=== PATIENT | female | born 1965 | race Caucasian/White ===

== ENCOUNTER 2023-05-02 21:35 | Emergency (ER) | payer OTHER, SELFPAY ==
[~2023-05-02 21:35] MED LIST: Iopamidol 370 76% 100 ML VIAL ONE
[2023-05-02] MEDS ORDERED: Labetalol HCl 100 MG/20 ML VIAL ONE (21:47)
[2023-05-02 22:08] LABS: #Basophils 0.1 10x3/uL (0.0-0.2); #Eosinphils 0.2 10x3/uL (0.0-0.5); #Monocytes 0.8 10x3/uL (0.0-1.1); #Neutrophils 6.9 10x3/uL (1.5-8.4); %Basophils 0.6 % (0.0-2.0); %Eosinophils 1.7 % (0.0-6.0); %Lymphocytes 26.2 % (18.0-47.0); %Monocytes 7.4 % (0.0-10.0); %Neutrophils 63.7 % (40.0-75.0); Hematocrit 39.6 % (34.9-44.5); Hemoglobin 12.5 g/dL (12.0-15.5); Mean Corpuscular HGB CONC 31.6 g/dL (32.0-36.0); Mean Corpuscular Hemoglobin 26.2 pg (27.0-33.0); Platelet Count 369 10x3/uL (150-450); RBC Distribution Width 14.7 % (11.5-14.5); Red Blood Cell (RBC) Count 4.77 10x6/uL (3.90-5.03); White Blood Cell (WBC) Count 10.8 10x3/uL (3.5-10.5)
[2023-05-02] MEDS ORDERED: Acetaminophen 500 MG TAB ONE (22:20)
[2023-05-02 22:22] LABS: ALT (SGPT) 26 U/L (8-55); AST (SGOT) 23 U/L (5-34); Alkaline Phosphatase 110 U/L (40-110); Anion Gap 14 mmol/L (10-20); BUN (Urea Nitrogen) 14 mg/dL (9.8-20.1); Bilirubin, Total 0.2 mg/dL (0.2-1.2); Calc. Creatinine Clearance 0 mL/min (70-130); Calcium 8.8 mg/dL (7.8-10.44); Carbon Dioxide 25 mmol/L (22-29); Chloride 105 mmol/L (98-107); Estimated GFR 52; Glucose 204 mg/dL (70-105); Potassium 4.1 mmol/L (3.5-5.1); Sodium 140 mmol/L (136-145)
[2023-05-02 22:28] LABS: Troponin I 0.014 ng/mL (< 0.028)
[2023-05-02 22:38] LABS: SARS-CoV-2 NAA Rapid Test Not Detected (NotDetected)
[2023-05-02] MEDS ORDERED: Ipratropium/Albuterol 3 ML NEB ONE (23:22)
== END 2023-05-03 00:45 | disposition home or self-care (01) ==
LOC: CSHERS 21:35
DX: R06.02 Shortness of breath (principal); I10 Essential (primary) hypertension
CPT/HCPCS: 71045; 71275; 80053; 83880; 84484; 85025; 93005; 96374; J7620

== ENCOUNTER 2023-06-14 19:20 | Emergency (ER) | payer BC ==
[2023-06-14] MEDS ORDERED: predniSONE 20 MG TAB ONE (19:51)
[2023-06-14] MEDS ORDERED: Benzonatate 100 MG CAP ONE (19:51)
[2023-06-14] MEDS ORDERED: Ipratropium/Albuterol 3 ML NEB ONE (20:08)
[2023-06-14 20:27] LABS: #Basophils 0.1 10x3/uL (0.0-0.2); #Eosinphils 0.2 10x3/uL (0.0-0.5); #Monocytes 0.7 10x3/uL (0.0-1.1); #Neutrophils 5.2 10x3/uL (1.5-8.4); %Basophils 0.8 % (0.0-2.0); %Eosinophils 2.6 % (0.0-6.0); %Lymphocytes 25.5 % (18.0-47.0); %Neutrophils 62.7 % (40.0-75.0); Hematocrit 38.5 % (34.9-44.5); Hemoglobin 12.2 g/dL (12.0-15.5); Mean Corpuscular HGB CONC 31.7 g/dL (32.0-36.0); Mean Corpuscular Hemoglobin 26.3 pg (27.0-33.0); Mean Platelet Volume 9.8 fl (7.4-10.4); Platelet Count 328 10x3/uL (150-450); RBC Distribution Width 14.4 % (11.5-14.5); Red Blood Cell (RBC) Count 4.64 10x6/uL (3.90-5.03); White Blood Cell (WBC) Count 8.4 10x3/uL (3.5-10.5)
[2023-06-14 20:38] LABS: ALT (SGPT) 21 U/L (8-55); AST (SGOT) 20 U/L (5-34); Albumin 3.7 g/dL (3.5-5.0); Alkaline Phosphatase 94 U/L (40-110); Anion Gap 16 mmol/L (10-20); BUN (Urea Nitrogen) 13 mg/dL (9.8-20.1); Bilirubin, Total 0.3 mg/dL (0.2-1.2); Calc. Creatinine Clearance 0 mL/min (70-130); Calcium 8.7 mg/dL (7.8-10.44); Carbon Dioxide 24 mmol/L (22-29); Chloride 104 mmol/L (98-107); Estimated GFR 56; Globulin 3.1 g/dL (2.4-3.5); Glucose 137 mg/dL (70-105); Potassium 3.5 mmol/L (3.5-5.1); Protein, Total 6.8 g/dL (6.0-8.3); Sodium 140 mmol/L (136-145)
== END 2023-06-14 20:57 | disposition home or self-care (01) ==
LOC: CSHERS 19:20
DX: J20.9 Acute bronchitis, unspecified (principal); I10 Essential (primary) hypertension; Z79.899 Other long term (current) drug therapy
CPT/HCPCS: 71045; 80053; 85025; J7512; J7620